=== PATIENT | male | born 1970 | race Caucasian/White ===

== ENCOUNTER 2017-09-11 16:08 | Emergency (ER) | payer BC ==
[~2017-09-11] VITALS: Ht 177.8 cm; Wt 90.0 kg
[2017-09-11 20:52] LABS: BASOPHILS % 0.5 % (0.0-2.0); CHLORIDE 107 mEq/L (98-107); EOSINOPHILS % 1.1 % (0.0-5.0); HEMATOCRIT. 39.3 % (42.0-52.0); HEMOGLOBIN. 13.9 g/dL (14.0-18.0); MEAN CORPUSCULAR HEMOGLOBIN 32.1 pg (28.0-32.0); MEAN CORPUSCULAR VOLUME 90.9 fL (80.0-94.0); MEAN PLATELET VOLUME 7.6 fl (7.4-10.4); MONOCYTES % 5.5 % (2.0-8.0); NEUTROPHILS % 63.9 % (40.0-76.0); PLATELET 241 x1000/uL (130-400); RED BLOOD CELL COUNT 4.33 mill/uL (4.7-6.1); RED CELL DISTRIBUTION WIDTH 17.2 % (11.6-14.6)
[2017-09-11 21:04] LABS: ETHANOL BLOOD 301 mg/dL
[2017-09-11] MEDS ORDERED: IBUPROFEN 600MG TABLET PO ONE (22:30)
[2017-09-12 01:19] LABS: *AMPHETAMINES SCREEN URINE NEGATIVE (NEGATIVE); *BARBITURATES SCREEN URINE NEGATIVE (NEGATIVE); *BENZODIAZEPINES SCREEN URINE NEGATIVE (NEGATIVE); *COCAINE SCREEN URINE NEGATIVE (NEGATIVE)
[2017-09-12 01:21] LABS: CANNABINOID URINE SCREEN PRESUMTIVE POSITIVE (NEGATIVE); METHADONE URINE SCREEN NEGATIVE (NEGATIVE); OPIATES URINE SCREEN NEGATIVE (NEGATIVE); PHENCYCLIDINE URINE SCREEN NEGATIVE (NEGATIVE)
[2017-09-12 03:35] VITALS: BP 122/75
== END 2017-09-12 04:20 | disposition home or self-care (01) ==
LOC: ER 16:08
DX: F10.129 Alcohol abuse with intoxication, unspecified (principal); H05.232 Hemorrhage of left orbit; S02.2XXA Fracture of nasal bones, initial encounter for closed fracture; F20.9 Schizophrenia, unspecified; Z88.0 Allergy status to penicillin; Y04.0XXA Assault by unarmed brawl or fight, initial encounter
CPT/HCPCS: 36415; 70486; 80048; 80305; 85025; 99285; G0482

== ENCOUNTER 2018-08-10 11:41 | Emergency (ER) | payer BC ==
[~2018-08-10] VITALS: Ht 177.8 cm; Wt 82.0 kg
[2018-08-10 16:55] LABS: BASOPHILS % 1.6 % (0.0-2.0); EOSINOPHILS % 0.1 % (0.0-5.0); HEMATOCRIT. 43.8 % (42.0-52.0); HEMOGLOBIN. 14.5 g/dL (14.0-18.0); LYMPHOCYTES % 32.4 % (20.0-50.0); MEAN CORPUSCULAR HEMOGLOBIN 30.7 pg (28.0-32.0); MEAN CORPUSCULAR VOLUME 92.7 fL (80.0-94.0); MEAN PLATELET VOLUME 7.7 fl (7.4-10.4); MONOCYTES % 7.5 % (2.0-8.0); NEUTROPHILS % 58.4 % (40.0-76.0); PLATELET 268 x1000/uL (130-400); RED BLOOD CELL COUNT 4.73 mill/uL (4.7-6.1); RED CELL DISTRIBUTION WIDTH 17.6 % (11.6-14.6)
[2018-08-10 16:59] LABS: CHLORIDE 106 mEq/L (98-107)
[2018-08-10] MEDS ORDERED: LORAZEPAM 1MG TABLET PO ONE ×2 (17:00→20:45)
[2018-08-10 17:03] LABS: CLARITY URINE CLEAR (CLEAR); COLOR URINE YELLOW (YELLOW); KETONES URINE NEGATIVE (NEGATIVE); LEUKOCYTE ESTERASE URINE NEGATIVE (NEGATIVE); NITRITE URINE NEGATIVE (NEGATIVE); OCCULT BLOOD URINE NEGATIVE (NEGATIVE); PROTEIN URINE 1+ (NEGATIVE); SPECIFIC GRAVITY URINE 1.013 (1.005-1.030); UROBILINOGEN URINE 0.2 E.U./dL (0.2-1.0)
[2018-08-10 17:04] LABS: ETHANOL BLOOD 216 mg/dL
[2018-08-10 17:14] LABS: *AMPHETAMINES SCREEN URINE NEGATIVE (NEGATIVE); *BENZODIAZEPINES SCREEN URINE NEGATIVE (NEGATIVE); *COCAINE SCREEN URINE NEGATIVE (NEGATIVE)
[2018-08-10 17:15] LABS: *BARBITURATES SCREEN URINE NEGATIVE (NEGATIVE); CANNABINOID URINE SCREEN PRESUMTIVE POSITIVE (NEGATIVE); METHADONE URINE SCREEN NEGATIVE (NEGATIVE); OPIATES URINE SCREEN NEGATIVE (NEGATIVE); PHENCYCLIDINE URINE SCREEN NEGATIVE (NEGATIVE)
[2018-08-11] MEDS ORDERED: LORAZEPAM 1MG TABLET PO ONE ×2 (05:00→10:00)
[2018-08-11 14:04] VITALS: BP 133/93
== END 2018-08-11 14:45 | disposition home or self-care (01) ==
LOC: ER 11:41
DX: R45.851 Suicidal ideations (principal); T51.91XA Toxic effect of unspecified alcohol, accidental (unintentional), initial encounter; Y92.9 Unspecified place or not applicable; F32.9 Major depressive disorder, single episode, unspecified; F20.9 Schizophrenia, unspecified; Z88.0 Allergy status to penicillin; Z85.850 Personal history of malignant neoplasm of thyroid
CPT/HCPCS: 36415; 80305; 80307; 80320; 80329; 99284; G0480

== ENCOUNTER 2019-06-11 21:36 | Emergency (ER) | payer BC ==
[~2019-06-11] VITALS: Ht 185.4 cm; Wt 82.0 kg
[2019-06-12] MEDS ORDERED: HALOPERIDOL 5MG TABLET PO ONE
[2019-06-12 00:18] LABS: BASOPHILS % 1.3 % (0.0-2.0); EOSINOPHILS % 0.2 % (0.0-5.0); HEMATOCRIT. 49.5 % (42.0-52.0); HEMOGLOBIN. 16.6 g/dL (14.0-18.0); LYMPHOCYTES % 30.7 % (20.0-50.0); MEAN CORPUSCULAR HEMOGLOBIN 31.1 pg (28.0-32.0); MEAN CORPUSCULAR VOLUME 92.6 fL (80.0-94.0); MEAN PLATELET VOLUME 8.1 fl (7.4-10.4); MONOCYTES % 5.3 % (2.0-8.0); NEUTROPHILS % 62.5 % (40.0-76.0); PLATELET 237 x1000/uL (130-400); RED BLOOD CELL COUNT 5.35 mill/uL (4.7-6.1); RED CELL DISTRIBUTION WIDTH 16.7 % (11.6-14.6)
[2019-06-12 01:15] LABS: CHLORIDE 103 mEq/L (98-107)
[2019-06-12 01:22] LABS: ETHANOL BLOOD 196 mg/dL
[2019-06-12 01:23] LABS: CREATINE KINASE 170 IU/L (39-308)
[2019-06-12] MEDS: QUETIAPINE FUMARATE 50MG TABLET PO SCH ×2 (03:02→09:08)
[2019-06-12] MEDS ORDERED: POTASSIUM CHLORIDE 20MEQ TABLET SR PO SCH (10:00)
[2019-06-12] MEDS ORDERED: LORAZEPAM 1MG TABLET PO ONE ×2 (11:00)
[2019-06-12] MEDS ORDERED: QUETIAPINE FUMARATE 50MG TABLET PO SCH (21:45)
[2019-06-13] MEDS: QUETIAPINE FUMARATE 50MG TABLET PO SCH (08:43)
[2019-06-13] MEDS ORDERED: LORAZEPAM 1MG TABLET PO ONE (08:45)
[2019-06-13 14:17] VITALS: BP 140/90
== END 2019-06-13 14:20 ==
LOC: ER 21:36
DX: R45.851 Suicidal ideations (principal); F20.9 Schizophrenia, unspecified; I10 Essential (primary) hypertension; F12.10 Cannabis abuse, uncomplicated; Z98.890 Other specified postprocedural states
CPT/HCPCS: 36415; 99284; J1630

== ENCOUNTER 2019-12-10 11:07 | Emergency (ER) | payer BC ==
[~2019-12-10] VITALS: Ht 185.4 cm; Wt 76.0 kg
[2019-12-10] MEDS ORDERED: SODIUM CHLORIDE 0.9% 1,000 ML IV ONE (11:42)
[2019-12-10] MEDS ORDERED: ONDANSETRON HCL 4MG/2ML INJ IV STA (11:42)
[2019-12-10] MEDS ORDERED: CHLORDIAZEPOXIDE 25MG CAPSULE PO ONE (11:45)
[2019-12-10 12:33] LABS: BASOPHILS % 0.5 % (0.0-2.0); HEMATOCRIT. 36.2 % (42.0-52.0); HEMOGLOBIN. 12.4 g/dL (14.0-18.0); LYMPHOCYTES % 10.6 % (20.0-50.0); MEAN CORPUSCULAR HEMOGLOBIN 29.4 pg (28.0-32.0); MEAN CORPUSCULAR VOLUME 85.6 fL (80.0-94.0); MEAN PLATELET VOLUME 7.9 fl (7.4-10.4); MONOCYTES % 7.5 % (2.0-8.0); NEUTROPHILS % 81.4 % (40.0-76.0); PLATELET 282 x1000/uL (130-400); RED BLOOD CELL COUNT 4.23 mill/uL (4.7-6.1); RED CELL DISTRIBUTION WIDTH 17.7 % (11.6-14.6)
[2019-12-10 12:40] LABS: CHLORIDE 82 mEq/L (98-107)
[2019-12-10 12:42] LABS: PROTHROMBIN TIME 10.7 sec (9.6-11.0)
[2019-12-10 12:45] LABS: ETHANOL BLOOD 131 mg/dL
[2019-12-10] MEDS ORDERED: LACTATED RINGERS 1,000 ML IV STA (13:04)
[2019-12-10] MEDS ORDERED: MAGNESIUM 2 G PREMIX 50 ML IV ONE (13:15)
[2019-12-10] MEDS ORDERED: DEXT 5%/0.45% NACL KCL 40MEQ/L 1,000 ML IV ONE (13:15)
[2019-12-10] MEDS ORDERED: POTASSIUM CHLORIDE 20MEQ TABLET SR PO ONE (14:30)
[2019-12-10] MEDS ORDERED: LORAZEPAM 2MG/ML CPJ IV ONE ×2 (16:00→19:15)
[2019-12-10 16:17] LABS: CLARITY URINE CLEAR (CLEAR); COLOR URINE YELLOW (YELLOW); KETONES URINE 1+ (NEGATIVE); LEUKOCYTE ESTERASE URINE NEGATIVE (NEGATIVE); NITRITE URINE NEGATIVE (NEGATIVE); OCCULT BLOOD URINE NEGATIVE (NEGATIVE); PH URINE >=9.0 (4.5-8.0); PROTEIN URINE 2+ (NEGATIVE); SPECIFIC GRAVITY URINE 1.019 (1.005-1.030)
[2019-12-10 16:46] LABS: *AMPHETAMINES SCREEN URINE NEGATIVE (NEGATIVE); *BARBITURATES SCREEN URINE NEGATIVE (NEGATIVE); *BENZODIAZEPINES SCREEN URINE NEGATIVE (NEGATIVE); *COCAINE SCREEN URINE NEGATIVE (NEGATIVE)
[2019-12-10 16:47] LABS: CANNABINOID URINE SCREEN PRESUMTIVE POSITIVE (NEGATIVE); METHADONE URINE SCREEN NEGATIVE (NEGATIVE); OPIATES URINE SCREEN NEGATIVE (NEGATIVE); PHENCYCLIDINE URINE SCREEN NEGATIVE (NEGATIVE)
[2019-12-11 10:30] VITALS: BP 140/86
== END 2019-12-11 11:03 ==
LOC: ER 11:27
DX: F10.10 Alcohol abuse, uncomplicated (principal); E86.0 Dehydration; F20.9 Schizophrenia, unspecified; R45.851 Suicidal ideations; R45.850 Homicidal ideations; I10 Essential (primary) hypertension; E89.0 Postprocedural hypothyroidism; F12.10 Cannabis abuse, uncomplicated; Y90.6 Blood alcohol level of 120-199 mg/100 ml; Z75.1 Person awaiting admission to adequate facility elsewhere; Z85.850 Personal history of malignant neoplasm of thyroid; Z88.0 Allergy status to penicillin; Y08.89XA Assault by other specified means, initial encounter; Y93.89 Activity, other specified; Y92.018 Other place in single-family (private) house as the place of occurrence of the external cause
CPT/HCPCS: 36415; 70450; 80048; 80053; 80305; 80320; 81003; 84484; 85025; 85610; 96361; 96365; 96366; 96367; 96375; 96376; 99285; J2060; J2405; J3475; J7030; J7120; G0480